=== PATIENT | female | born 1990 | race Caucasian/White ===

== ENCOUNTER 2017-01-13 05:10 | Inpatient (IN) | payer OTHER ==
--- NOTE | ~2017-01-13 | HP ---
Unit #: [id number] #: [id number] Patient: THALIA URIBE [id number] [place] [address] [id number] MR#: [id number] NAME: THALIA URIBE ROOM: P178 Age: 31 Sex: F Admission Date: 01/13/2017 : 12/06/1985 Attending Physician: Richard Renee M.D. Admitting Physician: Richard Renee M.D. Primary Care Physician: Primary Care Physician No HISTORY AND PHYSICAL HISTORY OF PRESENT ILLNESS Thalia is a 31-year-old female admitted to [facility] [place] because of her polyillicit substance abuse which includes methamphetamine and opioids. PAST MEDICAL HISTORY Long history of illicit substance abuse to include amphetamines and opioids. PAST SURGICAL HISTORY 1. T and A. 2. Oral. ALLERGIES No known drug allergies. SOCIAL HISTORY Smokes greater than one pack per day. Denies alcohol. Admits to long history of poly illicit substance abuse. FAMILY HISTORY Medically noncontributory. REVIEW OF SYSTEMS CONSTITUTIONAL: No fever or chills. HEENT: Denies any sore throat, ear pain or runny nose. CARDIOVASCULAR: Denies chest pain, irregular heart rhythm or palpitations. CHEST: Denies shortness of breath or cough. No hemoptysis. GASTROINTESTINAL: Denies nausea, vomiting, diarrhea or chronic constipation. ENDOCRINE: Denies history of increased thirst or urination. No recent significant weight loss or gain. GENITOURINARY: Denies dysuria, frequency, or hematuria. SKIN: Denies any rashes. HEMATOLOGIC: Denies history of increased bleeding or bruising. MUSCULOSKELETAL: Denies any hot, swollen joints. No generalized muscle pain. NEUROLOGIC: Denies problems with vision or speech. No frequent, severe headaches. No numbness, tingling or weakness in any extremities. Denies loss of bladder or bowel control. CURRENT MEDICATIONS 1. Nicotine patch 14 mg q. day. 2. Milk of Magnesia p.r.n. Unit #: [id number] #: [id number] Patient: THALIA URIBE 3. Maalox p.r.n. 4. Tylenol p.r.n. 5. Thorazine p.r.n. PHYSICAL EXAMINATION GENERAL: Alert, well nourished. No apparent distress. VITAL SIGNS: Blood pressure 120/78, heart rate 80, respirations 16, and temperature 98.6. WEIGHT: 150. HEIGHT: 5 feet 9 inches. SKIN: Warm and dry without rash or lesion. HEENT: Normocephalic. TMs not viewed. Oral and nasal passages clear. Conjunctivae clear. PERRLA. EOMs intact. NECK: Supple without lymphadenopathy or thyromegaly. HEART: Regular rate and rhythm without murmur. LUNGS: Clear. ABDOMEN: Soft, nontender. : Not done. EXTREMITIES: No evidence of cyanosis, clubbing or edema. Moves all without focal deficit. NEUROLOGICAL: Grossly within normal limits. Cranial Nerves: II: Visual penn are intact. III, IV AND : Extraocular movements are intact. Pupils are equal, round and reactive to light. V: Facial sensation is grossly normal. VII: Facial movements and expression are normal. VIII: Auditory acuity grossly intact. IX, X: Uvula is midline. Phonation is normal. XI: Patient shrugs shoulders and turns head normally. XII: Tongue protrudes in the midline. Sensory and Motor Function: Sensory and motor sensation is grossly normal. Motor: moves all extremities well. Coordination: Gait is normal. Deep Tendon Reflexes: Intact. IMPRESSION Psychiatric admission. RECOMMENDATIONS PSYCHIATRIC: Per psychiatrist. MEDICAL: I see no contraindication to participate in this facility's activities. MEDICAL PROGNOSIS Good. MEDICAL CONDITION Stable. Dictated by... Aleshia Mann P.A.-C. for Lyndsay Juarez/kendy TD: 01/14/2017 06:53 JOB #: [id number] Unit #: [id number] #: [id number] Patient: THALIA URIBE HISTORY AND PHYSICAL Page 1 of 1 X Aleshia Mann HISTORY AND PHYSICAL
--- NOTE | ~2017-01-13 | PA ---
Unit #: [id number] #: [id number] Patient: THALIA URIBE [id number] [place] [address] [id number] MR#: [id number] NAME: THALIA URIBE ROOM: P178 Age: 31 Sex: F Admission Date: 01/13/2017 : 12/06/1985 Date of Assessment: 01/13/2017 Attending Physician: Richard Renee M.D. Admitting Physician: Richard Renee M.D. Primary Care Physician: Primary Care Physician No PSYCHIATRIC ASSESSMENT IDENTIFYING INFORMATION The patient is a 31-year-old single white female admitted to the [address] [place] [address] with a history of methamphetamine abuse. INFORMANT(S) Patient. RELIABILITY Fair. CHIEF COMPLAINT None given. HISTORY OF PRESENT ILLNESS The patient is a 31-year-old white female admitted to the [address] [place] [address] with a history of methamphetamine abuse. The patient's mother had brought the patient to this facility as the patient had been reporting positive suicidal ideation. The patient was recently fired from her job secondary to her ongoing substance use. The patient has not been sleeping well and also been exhibiting some increased paranoia and visual hallucinations related to her methamphetamine abuse. The patient cannot be arouse for further interview today and further history of previous treatment, etc. cannot be obtained at this time. PAST PSYCHIATRIC HISTORY As above. FAMILY HISTORY Not obtained. SOCIAL HISTORY The patient's substance use includes abuse of methamphetamine, cannabis and alcohol. The patient had previously worked as a adjustment clerk and is a high school graduate. MEDICAL HISTORY Noncontributory. MEDICATION HISTORY None. ALLERGIES None. Unit #: [id number] #: [id number] Patient: THALIA URIBE MENTAL STATUS EXAM At this time, reveals the patient to be a soundly sleeping white female. She does not arouse in spite of multiple attempts on the part of this physician to awaken her. ASSETS AND LIABILITIES Patient's assets, supportive family. Liabilities, lack of resources. ADMITTING DIAGNOSES 1. 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 2. Alcohol use disorder. 3. Cannabis use disorder. PSYCHIATRIC PLAN/TREATMENT GOALS The patient will remain hospitalized for safety and stabilization. We will watch for any signs or symptoms of withdrawal or emerging psychosis. Dr. Renee will assume care of the patient on 01/13/17. Dictated by... Seth Celis M.D. CB/neri TD: 01/13/2017 15:15 JOB #: [id number] PSYCHIATRIC ASSESSMENT Page 1 of 1 X Seth Celis MD X PSYCHIATRIC ASSESSMENT
[2017-01-14 09:33] LABS: BASOPHIL# 0.1 X10e3 (0-0.3); BASOPHIL% 0.8 % (0-2.5); EOSINOPHIL# 0.3 X10e3 (0-0.7); EOSINOPHIL% 4.9 % (0.0-7.0); HEMATOCRIT 40.9 % (35.0-45.0); HEMOGLOBIN 13.7 gm/dL (12.0-16.0); LYMPHOCYTE# 2.9 X10e3 (1.0-3.5); LYMPHOCYTE% 41.5 % (17.0-45.0); MEAN CELL VOLUME 92.9 FL (83-96); MEAN CORPUSCULAR HEMOGLOBIN 31.1 PG (28-34); MEAN CORPUSCULAR HGB CONC 33.5 g/dL (30-36); MEAN PLATELET VOLUME 8.2 FL (6.5-11.5); MONOCYTE# 0.9 X10e3 (0-1.0); MONOCYTE% 12.3 % (3.0-12.0); NEUTROPHIL# 2.9 X10e3 (1.5-7.1); NEUTROPHIL% 40.5 % (40-75); PLATELET COUNT 225 X10e3 (140-420); RED CELL DISTRIBUTION WIDTH 13.3 % (11.0-15.5); WHITE BLOOD COUNT 7.1 X10e3 (4.0-10.5)
[2017-01-14 09:45] LABS: DIFF IND NO
[2017-01-14 09:51] LABS: ALBUMIN SERUM 3.9 g/dL (3.5-5.0); BILIRUBIN,TOTAL 0.6 mg/dL (0.2-2.0); BUN/CREATININE RATIO 11.25; CALCIUM SERUM 8.9 mg/dL (8.4-10.2); CREATININE SERUM 0.8 mg/dL (0.6-1.4); POTASSIUM 4.2 mmol/L (3.5-5.1)
== END 2017-01-14 11:45 | disposition home or self-care (01) | DRG 897 ==
LOC: P1E 05:10
PROVIDERS: Psychiatry & Neurology Psychiatry
DX: F15.122 Other stimulant abuse with intoxication with perceptual disturbance (principal); F10.10 Alcohol abuse, uncomplicated; F12.10 Cannabis abuse, uncomplicated; F17.210 Nicotine dependence, cigarettes, uncomplicated
CPT/HCPCS: 80053; 84703; 85025